=== PATIENT | female | born 1945 | race Two or more races ===

== ENCOUNTER → 2025-07-18 | Outpatient (CLI) | payer OTHER, SELFPAY ==
--- NOTE | 2025-07-18 08:56 | US_ITS ---
PROCEDURE: ABD LIMITED W/ ELASTOGRAPHY REASON FOR EXAM: CIRRHOSIS COMPARISON: None. TECHNIQUE: Procedure Code: [id number] Modality: US Procedure: ABD LIMITED W/ ELASTOGRAPHY Right upper quadrant abdominal ultrasound. [facility] ElastQ Imaging shear wave elastography for non-invasive assessment of liver tissue stiffness. [facility] EPIQ Elite. FINDINGS: LIVER: Size: Borderline hepatomegaly. Length: 17 cm Echotexture: Diffusely echogenic suggesting fatty infiltration Contour: Normal Lesions: 1.9 cm 2 cm 1.4 cm cyst in the right lobe of the liver in the region of the dome. Elastography: EQI Med: 4.4 kPa EQI Med Garth: 1.2 m/s IQR/Med: 25.8 %* GALLBLADDER: Normal COMMON BILE DUCT: Normal measuring 2.8 mm . PANCREAS: Normal Visualized portions of the right kidney are unremarkable except for a 5.7 cm 6.2 cm 7.2 cm cyst in the inferior medial pole of the right kidney.. No right upper quadrant ascites. US/ABD Limited w/ Elastography IMPRESSION: NO TO MILD HEPATIC FIBROSIS Borderline hepatomegaly. Diffuse fatty infiltration of the liver. Small cyst in the dome of the right lobe of the liver as well as a right renal cyst. Reference Values: SRU <1.37 m/s (5.7kPa): No to mild fibrosis 1.37 m/s - 2.2 m/s: Moderate to severe fibrosis >2.2 m/s (15kPa): Significant fibrosis / cirrhosis METAVIR Score F2 or higher: 1.34 m/s (5.7kPa) F3 or higher: 1.55 m/s (7.3kPa) F4: 1.80 m/s (10kPa) * If the IQR/Med is >30%, the variance in the measurements is a large and the a ccuracy of the measurement may be in question. Reading Location: [place] [id number]
--- NOTE | 2025-07-18 08:58 | US_ITS ---
PROCEDURE: THYROID 07/18/2025 REASON FOR EXAM: HYPERMETABOLIC LESION WITHIN THYROID ISTHMUS TECHNIQUE: Procedure Code: USTHY Modality: US Procedure: THYROID COMPARISON: None FINDINGS: Right thyroid lobe size: 5.2 x 1.9 x 1.9 cm Left thyroid lobe size: 5.9 x 1.6 x 1.5 cm Isthmus: 0.5 cm Background parenchymal echotexture is heterogeneous. Nodules: 1. Lobe: Right, Location: Mid, Size: 1.3 x 0.8 x 0.7 cm, Stability: N/A Nodule is vascular Composition: Mixed cystic and solid (+1) Echogenicity: Hypoechoic (+2) Margin: Smooth (+0) Shape: Wider than tall (+0) Echogenic Foci: Macrocalcification (+1) TI-RADS: TR 4 2. Lobe: Right, Location: Inferior, Size: 1.2 x 1.2 x 0.7 cm, Stability: N/A Nodule has no vasculature. Composition: Mixed cystic and solid (+1) Echogenicity: Hypoechoic (+2) Margin: Smooth (+0) Shape: Wider than tall (+0) Echogenic Foci: Macrocalcification (+1) TI-RADS: TR 4 3. Lobe: Left, Location: Upper, Size: 1.5 x 1.2 x 1.0 cm, Stability: N/A Nodule is vascular. Composition: Mixed cystic and solid (+1) Echogenicity: Hypoechoic (+2) Margin: Smooth (+0) Shape: Wider than tall (+0) Echogenic Foci: Macrocalcification (+1) TI-RADS: TR 4 4. Lobe: Left, Location: Mid, Size: 1.2 x 1.1 x 0.8 cm, Stability: N/A Nodule is vascular Composition: Mixed cystic and solid (+1) Echogenicity: Hypoechoic (+2) Margin: Smooth (+0) Shape: Wider than tall (+0) Echogenic Foci: Macrocalcification (+1) TI-RADS: TR 4 5. Isthmus, Size: 2.0 x 1.8 x 1.0 cm, Stability: N/A Nodule is not vascular Composition: Solid or almost completely solid (+2) Echogenicity: Hypoechoic (+2) Margin: Smooth (+0) Shape: Wider than tall (+0) Echogenic Foci: None (+0) TI-RADS: TR 4 US/Thyroid IMPRESSION: TR 4 Findings are compatible with multinodular goiter. There were additional nodule s seen in both thyroid lobes. The most worrisome nodules were evaluated as described above. RECOMMENDATION: Based on most suspicious nodule. Nodule size = largest diameter Only evaluate nodule if =>5 mm. Growth > 20% in 2 dimensions = worsening. Follow up to 4 nodules. Recommend biopsy for no more than 2 nodules. Reading Location: [id number]
== END | disposition home or self-care (01) ==
PROVIDERS: PCP Registered Nurse General Practice; Referring Provider Registered Nurse General Practice; Visit Provider Registered Nurse General Practice
DX: E04.1 Nontoxic single thyroid nodule (principal); K74.60 Unspecified cirrhosis of liver
CPT/HCPCS: 76536; 76705; 76981